=== PATIENT | female | born 2000 | race Caucasian/White ===

== ENCOUNTER 2022-03-23 05:40 | Day surgery (SDC) | payer MEDICAID ==
[~2022-03-23] VITALS: Ht 152.4 cm; Wt 62.1 kg
[2022-03-23 06:18] LABS: HCG,QUAL RESULT NEGATIVE (NEGATIVE)
[2022-03-23] MEDS ORDERED: ACETAMINOPHEN I.V. 1000 MG 100 ML IV ONE (07:32)
[2022-03-23] MEDS ORDERED: LR 1,000 ML IV SCH (08:30)
[2022-03-23] MEDS ORDERED: MEPERIDINE HCL/PF 25 MG/ML DISP.SYRIN IVP PRN (08:30)
[2022-03-23] MEDS ORDERED: LABETALOL 100 MG/ 20ML VIAL IVP PRN (08:30)
[2022-03-23] MEDS ORDERED: HYDROmorphone 1 MG/ML INJ. CARTRIDGE IVP PRN ×2 (08:30)
[2022-03-23] MEDS ORDERED: hydrALAZINE HCL 20 MG/ML VIAL IVP PRN (08:30)
[2022-03-23] MEDS ORDERED: MIDAZOLAM HCL 2 MG/2 ML VIAL (VERSED) IVP PRN (08:30)
[2022-03-23] MEDS ORDERED: METOCLOPRAMIDE HCL 10 MG/2 ML VIAL IVP PRN (08:30)
[2022-03-23 10:15] VITALS: BP_SYST 126
== END 2022-03-23 11:00 | disposition home or self-care (01) ==
LOC: SDS 05:40 → SMU 07:52 → SDS 11:00
PROVIDERS: ATTEND Otolaryngology
DX: J34.89 Other specified disorders of nose and nasal sinuses (principal); D38.5 Neoplasm of uncertain behavior of other respiratory organs; J30.1 Allergic rhinitis due to pollen; J30.0 Vasomotor rhinitis; J34.2 Deviated nasal septum; Z79.899 Other long term (current) drug therapy; Z20.822 Contact with and (suspected) exposure to COVID-19
CPT/HCPCS: 30140; 30520; 36415 ×2; 84703; 87426; 88305; 88311; J0131; U0003; 87635-QW; 88304